=== PATIENT | male | born 1980 | race Caucasian/White ===

== ENCOUNTER 2018-07-18 22:12 | Emergency (ER) | payer SELFPAY ==
[~2018-07-18] VITALS: Ht 185.4 cm; Wt 70.5 kg
[2018-07-18 22:16] VITALS: BP 145/81
[2018-07-18] MEDS ORDERED: WARF5TAB PO (22:22)
== END 2018-07-18 22:52 | disposition home or self-care (01) ==
LOC: ER 22:13
DX: I99.8 Other disorder of circulatory system (principal); Z76.0 Encounter for issue of repeat prescription; Z79.01 Long term (current) use of anticoagulants
CPT/HCPCS: 99283